=== PATIENT | female | born 1995 | race African-American/Black ===

== ENCOUNTER 2018-06-01 04:43 | Emergency (ER) | payer SELFPAY ==
[~2018-06-01] VITALS: Ht 165.1 cm; Wt 86.2 kg
[2018-06-01 04:45] VITALS: BP 125/95
[2018-06-01] MEDS ORDERED: DEXAMETHASONE 4 MG TABLET PO ONE (05:00)
== END 2018-06-01 05:11 | disposition left against medical advice (07) ==
LOC: ER 04:43
DX: H92.01 Otalgia, right ear (principal); Z53.21 Procedure and treatment not carried out due to patient leaving prior to being seen by health care provider

== ENCOUNTER 2019-09-17 13:28 | Inpatient (IN) | payer BC ==
[~2019-09-17] VITALS: Ht 165.1 cm; Wt 95.0 kg
[2019-09-17] MEDS ORDERED: IV NORMAL SALINE 1000ML BAG 1,000 ML IV ONE ×2 (16:15→18:45)
--- NOTE | 2019-09-17 16:15 | PHYS DOC ---
Past Medical History Past Medical History: No Pertinent History Past Surgical History: No Surgical History Alcohol Use: Occasionally Drug Use: Marijuana Adult General Chief Complaint Chief Complaint: ALTERED MENTAL STATUS HPI HPI Patient is a 24 year old female patient who presents to the ED today with a boyfriend and mother to be evaluated for overdose and altered mental status. Family reports patient is on several antidepressants including Alprazolam and amitriptyline. Per family statement patient filled a prescription for alprazolam 2 mg 30 tablets Qhs on 09/12/2019,and by today they noted all the pills are all gone. She also filled Amitriptyline yesterday but claims she threw the bottled out of the car window. Boy friend reports she stated the sold the Alprazolam. Per boyfriend she sometimes sells her medicines but they do not believe she sold all of them. Family reports she appeared lethargic on and off on Tuesday, then Tuesday they noted she was more lethargic and not following instructions well. By today they noted increased lethargy and patient's bottle of alprazolam was em pty and amitriptyline was missing. Patient is lethargic with slurred speech and drooling. Family reports patient has had similar episodes of overdose before but she is usually able to sleep it off. Review of Systems Review of Systems Constitutional: Denies fever or chills [] Eyes: Denies change in visual acuity, redness, or eye pain [] HENT: Denies nasal congestion or sore throat [] Respiratory: Denies cough or shortness of breath [] Cardiovascular: No additional information not addressed in HPI [] GI: Denies abdominal pain, nausea, vomiting, bloody stools or diarrhea [] : Denies dysuria or hematuria [] Musculoskeletal: Denies back pain or joint pain [] Integument: Denies rash or skin lesions [] Neurologic: Reports AMS. Denies headache, focal weakness or sensory changes [] Psych: Overdose All other systems were reviewed and found to be within normal limits, except as documented in this note. Current Medications Current Medications Allergies Allergies Allergies Coded Allergies Type Severity Reaction Last Updated Verified Penicillins Allergy Severe Rash 06/01/18 Yes prednisone Allergy Severe Hives 06/01/18 Yes Physical Exam Physical Exam Constitutional: Well developed, well nourished, lethargic HENT: Normocephalic, atraumatic, bilateral external ears normal, oropharynx moist, no oral exudates, nose normal. [] Eyes: PERRLA, EOMI, conjunctiva normal, no discharge. [] Neck: Normal range of motion, no tenderness, supple, no stridor. [] Cardiovascular:Heart rate regular rhythm, no murmur [] Lungs & Thorax: Bilateral breath sounds clear to auscultation [] Abdomen: Bowel sounds normal, soft, no tenderness, no masses, no pulsatile masses. [] Skin: Warm, dry, no erythema, no rash. [] Back: No tenderness, no CVA tenderness. [] Extremities: No tenderness, no cyanosis, no clubbing, ROM intact, no edema. Unsteady gait Neurologic: Alert and oriented X 1-2, normal motor function, normal sensory function, no focal deficits noted. Cranial nerves II through XII intact Psychologic: Lethargic appearing patient, slurred speech, drooling Current Patient Data Vital Signs EKG EKG [address] Guajardo sinus rhythm HR 91 QRS 100 no STEMI[] [address] Lara sinus rhythm HR 86 QRS 98 no STEMI Radiology/Procedures Radiology/Procedures []PROCEDURE: PORTABLE CHEST 1V EXAM: PORTABLE CHEST 1V INDICATION: Altered mental status. TECHNIQUE: Single view COMPARISON: None FINDINGS: The heart size is normal. The great vessels appear unremarkable. There is no hilar or mediastinal mass. The lungs are clear. There is no pleural effusion or pneumothorax. There are no significant osseous abnormalities. IMPRESSION: No active cardiopulmonary disease. Electronically signed by: Alex Machuca MD (09/17/2019 5:25 PM) [facility] DICTATED and SIGNED BY: ALEX MACHUCA MD DATE: 09/17/19 1725 PROCEDURE: CT HEAD WO CONTRAST STUDY: CT head without contrast INDICATION: Altered mental status. COMPARISON: None. TECHNIQUE: Axial CT imaging through the head without the use of intravenous contrast. Sagittal and coronal reformats were obtained. One or more of the following individualized dose reduction techniques were utilized for this examination: 1. Automated exposure control 2. Adjustment of the mA and/or kV according to patient size 3. Use of iterative reconstruction technique. FINDINGS: No acute intracranial hemorrhage. Lazo-white matter differentiation is maintained. No mass effect, midline shift or hydrocephalus. Unremarkable scalp and visualized orbits. Intact calvarium. IMPRESSION: Unremarkable head CT. Electronically signed by: LAVON CASTRO MD (09/17/2019 5:16 PM) [facility] DICTATED and SIGNED BY: LAVON CASTRO MD DATE: 09/17/19 1716 Course & Med Decision Making Course & Med Decision Making Pertinent Labs and Imaging studies reviewed. (See chart for details) This is a 24-year-old female patient presenting to the ED today to be evaluated for altered mental status and overdose. Patient is on amitriptyline and alprazolam. She appears to have completed 30 tablets of alprazolam since September 12, 2018 and is missing Amitriptyline bottle which she filled on Tuesday. 1621 Spoke with [facility] control, labs, EKG and fluids ordered long observation recommended with repeat EKG. Spoke to [facility] team they will f/u with patient tommorrow as an admit. CBC with a normal WBC, platelet count 429, Ct of the head is negative. Chest xray is negative. Negative urine hCG. CMP with no acute findings Urine drug screen positive for benzodiazepines and marijuana Awaiting repeat EKG Spoke with Dr. Muniz who accepted patient for admission Will continue IV fluids Repeat EKG is normal Patient is more awake talking better though not making sense at times Dragon Disclaimer Dragon Disclaimer This electronic medical record was generated, in whole or in part, using a voice recognition dictation system. Departure Departure Impression: Primary Impression: Overdose Additional Impression: AMS (altered mental status) Disposition: 09 ADMITTED INPATIENT Condition: STABLE Referrals: NO PCP (PCP) Problem Qualifiers Primary Impression: Overdose Encounter type: initial encounter Injury intent: accidental or unintentional Qualified Codes: T50.901A - Poisoning by unspecified drugs, medicaments and biological substances, accidental (unintentional), initial encounter Additional Impression: AMS (altered mental status) Altered mental status type: unspecified Qualified Codes: R41.82 - Altered mental status, unspecified [employer] Sep 17, 2019 16:15
[2019-09-17 16:35] LABS: BILIRUBIN,URINE NEGATIVE (NEG); CLARITY,URINE CLEAR; COLOR,URINE YELLOW; NITRITE,URINE POSITIVE (NEG); PROTEIN,URINE NEGATIVE (NEG-TRACE); UROBILINOGEN,URINE 0.2 mg/dL (0.2 mg/dL)
[2019-09-17 16:41] LABS: BARBITURATES NEG (NEG); BENZODIAZEPINES POS (NEG); CANNABINOIDS POS (NEG); COCAINE NEG (NEG); METHADONE NEG (NEG); OPIATES NEG (NEG); PHENCYCLIDINE NEG (NEG)
[2019-09-17 16:43] LABS: AMPHETAMINE/METHAMPHETAMINE NEG (NEG)
[2019-09-17 16:47] LABS: RBC,URINE 0 /HPF (0-2); WBC,URINE 0 /HPF (0-4)
[2019-09-17 16:48] LABS: BACTERIA,URINE 0 /HPF (0-FEW); SQUAMOUS EPITHELIAL CELL,UR FEW /LPF
[2019-09-17 16:57] LABS: U PREG PATIENT NEGATIVE (NEG)
--- NOTE | 2019-09-17 17:19 | RAD ---
STUDY: CT head without contrast INDICATION: Altered mental status. COMPARISON: None. TECHNIQUE: Axial CT imaging through the head without the use of intravenous contrast. Sagittal and coronal reformats were obtained. One or more of the following individualized dose reduction techniques were utilized for this examination: 1. Automated exposure control 2. Adjustment of the mA and/or kV according to patient size 3. Use of iterative reconstruction technique. FINDINGS: No acute intracranial hemorrhage. Lazo-white matter differentiation is maintained. No mass effect, midline shift or hydrocephalus. Unremarkable scalp and visualized orbits. Intact calvarium. IMPRESSION: Unremarkable head CT. Electronically signed by: LAVON CASTRO MD (09/17/2019 5:16 PM) [facility]
--- NOTE | 2019-09-17 17:28 | RAD ---
EXAM: PORTABLE CHEST 1V INDICATION: Altered mental status. TECHNIQUE: Single view COMPARISON: None FINDINGS: The heart size is normal. The great vessels appear unremarkable. There is no hilar or mediastinal mass. The lungs are clear. There is no pleural effusion or pneumothorax. There are no significant osseous abnormalities. IMPRESSION: No active cardiopulmonary disease. Electronically signed by: Darlene Machuca MD (09/17/2019 5:25 PM) [facility]
[2019-09-17 18:14] LABS: BASO % 1 % (0-3); EOS % 1 % (0-3); HEMATOCRIT 32.9 % (36.0-47.0); HEMOGLOBIN 10.3 g/dL (12.0-15.5); LYMPH # 1.5 x10^3/uL (1.0-4.8); LYMPH % 27 % (24-48); MEAN CORPUSCULAR HEMOGLOBIN 22 pg (25-35); MEAN CORPUSCULAR HGB CONC 31 g/dL (31-37); MEAN CORPUSCULAR VOLUME 71 fL (79-100); MONO # 0.5 x10^3/uL (0.0-1.1); MONO % 8 % (0-9); NEUT # 3.5 x10^3/uL (1.8-7.7); NEUT % 63 % (31-73); PLATELET COUNT 429 x10^3/uL (140-400); RED BLOOD COUNT 4.63 x10^6/uL (3.50-5.40); RED CELL DISTRIBUTION WIDTH 20.2 % (11.5-14.5); WHITE BLOOD COUNT 5.5 x10^3/uL (4.0-11.0)
[2019-09-17 18:26] LABS: PROTHROMBIN TIME PATIENT 13.8 SEC (11.7-14.0)
[2019-09-17 18:32] LABS: CALCIUM 9.3 mg/dL (8.5-10.1); CREATININE 0.8 mg/dL (0.6-1.0); GFR 105.8; POTASSIUM 3.8 mmol/L (3.5-5.1)
[2019-09-17 18:35] LABS: ACETAMIN < 2.0 mcg/ml (10-30); ETHANOL < 3 mg/dL (0-10); SALIC < 2.8 mg/dL (2.8-20.0)
[2019-09-17 18:38] LABS: ALBUMIN 4.1 g/dL (3.4-5.0); ALBUMIN/GLOBULIN RATIO 1.1 (1.0-1.7); TOTAL BILIRUBIN 0.5 mg/dL (0.2-1.0); TOTAL PROTEIN 7.7 g/dL (6.4-8.2)
[2019-09-17 18:42] LABS: PLT ESTIMATE INCREASED (ADEQUATE)
[2019-09-17 18:43] LABS: ANISOCYTOSIS MOD; HYPOCHROMIA MOD; MICROCYTOSIS MARKED; POLYCHROMASIA SLIGHT; SCHISTOCYTES OCC; TARGET CELLS OCC
[2019-09-17] MEDS ORDERED: ONDANSETRON PF 4 MG/2 ML VIAL. IV PRN (18:45)
[2019-09-17 18:50] LABS: MAGNESIUM 2.1 mg/dL (1.8-2.4)
[2019-09-17 21:00] VITALS: BP 158/86
[2019-09-17] MEDS ORDERED: ALPR2TAB5 PO (23:28)
[2019-09-17] MEDS ORDERED: AMIT50TA PO (23:31)
[2019-09-17 23:59] VITALS: BP 166/67
[2019-09-18 03:37] VITALS: BP 113/70
[2019-09-18 05:21] LABS: ALBUMIN 3.5 g/dL (3.4-5.0); ALBUMIN/GLOBULIN RATIO 1.1 (1.0-1.7); CALCIUM 8.6 mg/dL (8.5-10.1); CREATININE 0.8 mg/dL (0.6-1.0); GFR 105.8; POTASSIUM 3.6 mmol/L (3.5-5.1); TOTAL BILIRUBIN 0.6 mg/dL (0.2-1.0); TOTAL PROTEIN 6.7 g/dL (6.4-8.2)
--- NOTE | 2019-09-18 06:26 | EKG ---
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
--- NOTE | 2019-09-18 06:28 | EKG ---
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
[2019-09-18 07:00] VITALS: BP 123/58
--- NOTE | 2019-09-18 10:39 | NUR ---
SS following for discharge planning. SS reviewed pt chart. Pt is from home and is currently on room air. Pt is 1:1 due to overdose of Xanax and Amitriptyline. PAT team consulted. SS will continue to follow for discharge planning.
[2019-09-18 11:00] VITALS: BP 140/67
[2019-09-18] MEDS ORDERED: IV NORMAL SALINE 1000ML BAG 1,000 ML IV SCH (12:00)
--- NOTE | 2019-09-18 12:21 | EKG ---
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
--- NOTE | 2019-09-18 13:33 | NUR ---
SS following up with planning. PAT team met with pt and cleared for discharge. Pt's RN notified. Discharge order on the chart for home with self care.
--- NOTE | 2019-09-18 13:49 | SSS ---
ADMIT DATE: 09/18/2019 SHORT-STAY SUMMARY CHIEF COMPLAINT: Overdose. HISTORY OF PRESENT ILLNESS: The patient is a pleasant 24-year-old female who took 3 tablets of 50 mg amitriptyline. She also took some Xanax tablets. They reach 2 mg apiece. Basically, she states she just was under some stress and wanted to get some good sleep. Family was concerned because she would not wake up very good, so we admitted the patient overnight. She is now being examined on the medical floor where she is now alert, cooperative, and requesting discharge. I told her I would talk to the psychiatric assessment team and see if they are okay with her going. Indeed I talked to them they state that she is okay with going. PAST MEDICAL HISTORY: Anxiety and insomnia. ALLERGIES: None. FAMILY HISTORY: Diabetes. SOCIAL HISTORY: She does not drink, smoke or take drugs. She has 2 degrees from the [employer]. She works at [employer]. She has a boyfriend. MEDICATIONS: Reviewed, please refer to the MRAD. REVIEW OF SYSTEMS: GENERAL: No history of weight change, weakness or fevers. SKIN: No bruising, hair changes or rashes. EYES: No blurred, double or loss of vision. NOSE AND THROAT: No history of nosebleeds, hoarseness or sore throat. HEART: No history of palpitations, chest pain or shortness of breath on exertion. LUNGS: Denies cough, hemoptysis, wheezing or shortness of breath. GASTROINTESTINAL: Denies changes in appetite, nausea, vomiting, diarrhea or constipation. GENITOURINARY: No history of frequency, urgency, hesitancy or nocturia. NEUROLOGIC: Denies history of numbness, tingling, tremor or weakness. PSYCHIATRIC: No history of panic, anxiety or depression. ENDOCRINE: No history of heat or cold intolerance, polyuria or polydipsia. EXTREMITIES: Denies muscle weakness, joint pain, pain on walking or stiffness. PHYSICAL EXAMINATION: VITALS: Within normal limits and are stable. GENERAL: No apparent distress. Alert and oriented. HEENT: Normal cephalic atraumatic, external auditory canals are patent EYES: Extraocular muscles are intact, pupils are equally round and reactive to light and accommodation MUSCULOSKELETAL: Well developed, well nourished, good range of motion ENDOCRINE: No thyromegaly was palpated LYMPHATICS: No cervical chain or axillary nodes were noted HEMATOPOIETIC: No bruising NECK: Supple, no JVD, no thyromegaly was noted. LUNGS: Clear to auscultation in all lung lauren without rhonchi or wheezing. HEART: RRR, S1, S2 present. Peripheral pulses intact, no obvious murmurs were noted. ABDOMEN: Soft, nontender. Positive bowel sounds no organomegaly, normal bowel sounds. EXTREMITIES: Without any cyanosis, clubbing, or edema. Pedal pulses intact, Homans sign is negative. NEUROLOGIC: Normal speech, normal tone. A & O x3, moves all extremities, no obvious focal deficits. PSYCHIATRIC: Normal affect, normal mood. Stable. SKIN: No ulcerations or rashes, good skin turgor, no jaundice. VASCULAR: Good capillary refill, neurovascular bundle appears to be intact. ASSESSMENT AND PLAN: 1. Resolving ingestion. I did ask her specifically, she wanted to hurt herself. She states no, she just want to get some sleep. She insists she would never hurt herself. She denies even being depressed. We will go ahead and discharge with close outpatient followup. DISPOSITION: Home. ACTIVITY: As tolerated. DIET: Low sodium. MEDICATIONS: I continued her Xanax, but I stopped her amitriptyline. We have her follow up with the PCP in a week. TOTAL TIME: 32 minutes. MIRL Rigo BRADSHAW DO DR: JACOBO/cisco JOB#: [id number] / [id number]
[2019-09-18 15:00] VITALS: BP 138/71
--- NOTE | 2019-09-18 15:20 | NUR ---
Discharge Note: PEREZ WILSON N [address] [facility] Discharge instructions and discharge home medications reviewed with Patient and a copy given. All questions have been answered and understanding verbalized. The following instructions and handouts were given: discharge instructions, accidental suicide info. Discontinued lines and drains: Peripheral IV intact. Patient discharged to Home or Self Care with Family Member via Ambulated at 1520.
== END 2019-09-18 15:20 | disposition home or self-care (01) | DRG 918 ==
LOC: ER 13:28 → 2 SOUTH 15:00
PROVIDERS: ADMIT Internal Medicine; ATTEND Internal Medicine
DX: T43.011A Poisoning by tricyclic antidepressants, accidental (unintentional), initial encounter (principal); R41.82 Altered mental status, unspecified; F41.9 Anxiety disorder, unspecified; G47.00 Insomnia, unspecified; Y92.89 Other specified places as the place of occurrence of the external cause; Z88.0 Allergy status to penicillin; Z88.8 Allergy status to other drugs, medicaments and biological substances; Z83.3 Family history of diabetes mellitus
CPT/HCPCS: 36415; 70450; 71045; 80053; 80307; 80329; 81001; 81025; 82553; 83735; 83880; 84484; 85025; 85610; 85730; 93005; G0480; J7030; G0378